=== PATIENT | female | born 1990 | race Caucasian/White ===

== ENCOUNTER → 2019-11-22 | Outpatient (REF) | payer OTHER ==
[2019-11-22 15:04] LABS: INFLUENZA A AMPLIFICATION NEGATIVE (NEGATIVE); INFLUENZA B AMPLIFICATION NEGATIVE (NEGATIVE)
== END ==
LOC: M LAB REF 12:36
PROVIDERS: ATTEND Registered Nurse
DX: R50.9 Fever, unspecified (principal); J02.9 Acute pharyngitis, unspecified

== ENCOUNTER → 2019-12-06 | Outpatient (REF) | payer OTHER ==
[2019-12-07 14:11] LABS: ANTINUCLEAR ANTIBODIES DIRECT Negative (Negative)
== END ==
LOC: M LAB REF 13:40
PROVIDERS: ATTEND Registered Nurse
DX: G43.909 Migraine, unspecified, not intractable, without status migrainosus (principal)

== ENCOUNTER → 2019-12-21 | Outpatient (REF) | payer OTHER ==
[2019-12-21 17:38] LABS: HEMATOCRIT 38.8 % (36.0-47.0); HEMOGLOBIN 12.7 g/dl (12.0-15.5); MEAN CORPUSCULAR HEMOGLOBIN 29.3 pg (27.0-33.0); MEAN CORPUSCULAR HGB CONC 32.7 g/dl (32.0-36.5); MEAN CORPUSCULAR VOLUME 89.6 fl (80.0-96.0); PLATELET COUNT, AUTOMATED 221 10^3/uL (150-450); RED BLOOD COUNT 4.33 10^6/uL (4.00-5.40); WHITE BLOOD COUNT 10.4 10^3/uL (4.0-10.0)
[2019-12-21 17:57] LABS: HCG, SERUM QUANTITATIVE 18386 MIU/ML
[2019-12-22 10:29] LABS: RUBELLA IgG QUALITATIVE IMMUNE (IMMUNE)
[2019-12-22 10:58] LABS: HEPATITIS C VIRUS ABY INDEX < 0.0 INDEX (<0.8); HIV 1&2 SCREEN CENTAUR NEGATIVE (NEGATIVE)
== END ==
LOC: M LAB REF 16:44
PROVIDERS: ATTEND Obstetrics & Gynecology
DX: Z32.01 Encounter for pregnancy test, result positive (principal)

== ENCOUNTER → 2020-05-22 | Outpatient (CLI) | payer OTHER ==
[~2020-05-22] MED LIST: ACET-683 PO; IBUP80TA PO; PRENTAB9 PO
[2020-06-22 08:18] LABS: HEMATOCRIT 35.4 % (36.0-47.0); HEMOGLOBIN 11.5 g/dl (12.0-15.5); MEAN CORPUSCULAR HEMOGLOBIN 29.9 pg (27.0-33.0); MEAN CORPUSCULAR HGB CONC 32.5 g/dl (32.0-36.5); MEAN CORPUSCULAR VOLUME 92.2 fl (80.0-96.0); PLATELET COUNT, AUTOMATED 202 10^3/uL (150-450); RED BLOOD COUNT 3.84 10^6/uL (4.00-5.40); WHITE BLOOD COUNT 13.3 10^3/uL (4.0-10.0)
== END ==
LOC: M LAB 08:31
PROVIDERS: ATTEND Registered Nurse
DX: Z34.82 Encounter for supervision of other normal pregnancy, second trimester (principal); Z3A.00 Weeks of gestation of pregnancy not specified
CPT/HCPCS: 82950; 85027; 86850; 86901; J2790

== ENCOUNTER 2020-08-12 11:02 | Outpatient (CLI) | payer OTHER ==
[~2020-08-12] VITALS: Ht 162.6 cm; Wt 80.4 kg
[2020-08-12] MEDS ORDERED: PRENTAB9 PO (11:28)
[2020-08-12 11:30] VITALS: BP 99/59
[2020-08-12] MEDS ORDERED: LR 1,000 ML IV SCH (11:45)
[2020-08-12] MEDS ORDERED: LACTATED RINGER'S 500 ML IV ONE (12:00)
--- NOTE | 2020-08-12 12:34 | REP ---
INDICATION: QUESTIONABLE MONITORING AT OFFICE. Limited study. COMPARISON: August 06, 2020.. TECHNIQUE: Transabdominal obstetric sonography. FINDINGS: Scanning demonstrates a single intrauterine gestation in the cephalic lie. A posterior fundal grade 3 placenta is seen without evidence of previa. A 2 vessel umbilical cord is noted. heart rate is recorded at 140 beats per minute. Amniotic fluid is subjectively normal. JOSE is normal 14.3 cm. Biophysical profile score is 8 out of a possible 8. The umbilical arterial Doppler SD ratios normal a 2.63. IMPRESSION: Biophysical profile score 8/8. Viable single intrauterine cephalic fetus. Normal JOSE 14.3 cm. <Electronically signed by Chase Kaur > 08/12/20 [id number]
== END 2020-08-12 13:00 | disposition home or self-care (01) ==
LOC: M LDO 11:02
PROVIDERS: ATTEND Obstetrics & Gynecology
DX: O47.1 False labor at or after 37 completed weeks of gestation (principal); Z3A.39 39 weeks gestation of pregnancy
CPT/HCPCS: 59025; 76815; 76819; 76820; G0378; G0463

== ENCOUNTER 2020-08-15 02:15 | Inpatient (IN) | payer OTHER ==
[~2020-08-15] VITALS: Ht 162.6 cm; Wt 79.6 kg
[2020-08-15] VITALS (65 sets, daily range): BP systolic 77–131; BP diastolic 45–85
[~2020-08-15 02:15] MED LIST changes: -ACET-683 PO; -IBUP80TA PO
[2020-08-15] MEDS ORDERED: BICITRA 30ML SOLN UDC PO ONE (05:15)
[2020-08-15] MEDS ORDERED: ACETAMINOPHEN 500 MG TAB PO ONE (05:15)
[2020-08-15] MEDS ORDERED: OXYTOCIN DRIP 30 UNITS in IV 1 EA IV SCH ×2 (08:15→17:42)
[2020-08-15] MEDS: LR 1,000 ML IV SCH ×4 (08:53→16:05)
[2020-08-15 09:07] LABS: APPEARANCE, URINE CLEAR (CLEAR); BACTERIA, URINE AUTO NEGATIVE (NEGATIVE); BASO # 0.1 10^3/uL (0.0-0.2); BASO % 0.3 % (0.0-1.0); BILIRUBIN, URINE AUTO NEGATIVE (NEGATIVE); BLOOD, URINE BLOOD NEGATIVE (NEGATIVE); COLOR, URINE YELLOW (YELLOW); EOS % 0.1 % (0.0-3.0); GLUCOSE, URINE (UA) AUTO 1+ mg/dL (NEGATIVE); HEMATOCRIT 31.7 % (36.0-47.0); KETONE, URINE AUTO 2+ mg/dL (NEGATIVE); LEUKOCYTE ESTERASE, URINE AUTO NEGATIVE (NEGATIVE); LYMPH # 1.1 10^3/uL (1.5-5.0); LYMPH % 5.7 % (24.0-44.0); MEAN CORPUSCULAR HEMOGLOBIN 26.7 pg (27.0-33.0); MEAN CORPUSCULAR HGB CONC 31.5 g/dl (32.0-36.5); MEAN CORPUSCULAR VOLUME 84.5 fl (80.0-96.0); MONO # 0.9 10^3/uL (0.0-0.8); MONO % 4.5 % (0.0-5.0); MUCUS, URINE SMALL (NEGATIVE); NEUTROPHILS # 16.8 10^3/uL (1.5-8.5); NEUTROPHILS % 87.8 % (36.0-66.0); NITRITE, URINE AUTO NEGATIVE (NEGATIVE); PLATELET COUNT, AUTOMATED 180 10^3/uL (150-450); PROTEIN, URINE AUTO NEGATIVE (NEGATIVE); RBC, URINE AUTO 0 /HPF (0-3); RED BLOOD COUNT 3.75 10^6/uL (4.00-5.40); SPECIFIC GRAVITY URINE AUTO 1.013 (1.002-1.035); SQUAMOUS EPITHELIAL CELL UR AU 0 /HPF (0-6); UROBILINOGEN, URINE AUTO 0.2 mg/dL (0.0-2.0); WBC, URINE AUTO 2 /HPF (0-3); WHITE BLOOD COUNT 19.1 10^3/uL (4.0-10.0)
[2020-08-15] MEDS ORDERED: FENTANYL 2MCG/ML ROPIVACAINE 0.2% IN 0.9% NACL 100ML IVBAG As Ordered ONE (09:24)
[2020-08-15 09:30] LABS: ALT/SGPT 8 U/L (12-78); BILIRUBIN,TOTAL 0.2 MG/DL (0.2-1.0); CREATININE FOR GFR 0.48 MG/DL (0.55-1.30); GLOMERULAR FILTRATION RATE > 60.0 (>60); LDH LACTATE DEHYDROGENASE 245 U/L (84-246); URIC ACID 2.6 MG/DL (2.6-6.0)
[2020-08-15] MEDS ORDERED: NALOXONE INJ 0.4MG/1ML VIAL (J2310 PER 1MG) IV PRN (11:00)
[2020-08-15] MEDS ORDERED: LACTATED RINGER'S 1000 ML IV PRN (11:00)
[2020-08-15] MEDS ORDERED: diphenhydrAMINE 50MG/ML VIAL (J1200) IV PRN (11:00)
[2020-08-15] MEDS ORDERED: EPIDURAL/PCA KEYS XX PRN (11:00)
[2020-08-15] MEDS ORDERED: ONDANSETRON 4MG/2ML VIAL IV PRN (11:00)
[2020-08-15] MEDS ORDERED: EPIDURAL COMMENT XX SCH (11:00)
[2020-08-15] MEDS ORDERED: REFRIGERATOR IV KEYS XX PRN (11:00)
[2020-08-15] MEDS ORDERED: FENTANYL/ROPIVACAINE/NACL BAG 100 ML EPIDURAL SCH (11:00)
[2020-08-15] MEDS: ePHEDrine SULFATE 25 MG/5 ML(5MG/ML) SYRINGE IV PRN ×6 (11:18→13:06)
[2020-08-15] MEDS ORDERED: METHYLERGONOVINE MALEATE 0.2 MG TAB PO PRN (17:45)
[2020-08-15] MEDS ORDERED: IBUPROFEN 600MG TAB PO PRN (17:45)
[2020-08-15] MEDS ORDERED: ACETAMINOPHEN 500 MG TAB PO PRN (17:45)
[2020-08-15] MEDS ORDERED: MOM 30ML SUSPENSION UDC PO PRN (17:45)
[2020-08-15] MEDS ORDERED: MEASLES,MUMPS,RUBELLA VACCINE INJ (MMR-II) (90707) SC SCH (17:45)
[2020-08-15] MEDS ORDERED: DOCUSATE SODIUM 100 MG CAP PO PRN (17:45)
[2020-08-15] MEDS ORDERED: DIBUCAINE 1% OINTMENT 30GM TOP PRN (17:45)
[2020-08-15] MEDS ORDERED: ANUSOL HC CREAM 30GM TOP PRN (17:45)
[2020-08-15] MEDS ORDERED: RHOGAM 300 MCG (1500 IU) INJ (J2790) IM SCH (17:45)
[2020-08-15] MEDS ORDERED: ACETAMINOPHEN TAB 650MG DOSE (2X325MG) PO PRN (17:45)
[2020-08-15 17:47] LABS: CORD GAS ABE V -2.8; CORD GAS HCO3 V 22.8 MEQ/L; CORD GAS O2 SAT V 68.8 %; CORD GAS PCO2 V 42.2 mmHg; CORD GAS PH V 7.35 UNITS; CORD GAS PO2 V 27.9 mmHg; CORD GAS SBC V 21.5 MEQ/L; CORD GAS TCO2 V 24.1 MEQ/L
[2020-08-15 17:49] LABS: CORD GAS ABE A -2.6; CORD GAS HCO3 A 24.8 MEQ/L; CORD GAS O2 SAT A 33.1 %; CORD GAS PCO2 A 53.3 mmHg; CORD GAS PH A 7.286 UNITS; CORD GAS SBC A 20.7 MEQ/L; CORD GAS TCO2 A 26.5 MEQ/L
[2020-08-15] MEDS: IBUPROFEN 800 MG TAB PO PRN (20:16)
[2020-08-16 06:00] VITALS: BP 113/70
--- NOTE | 2020-08-16 07:10 | HPE ---
DATE OF ADMISSION: 08/15/2020 Mary is a 30-year-old female, 2, para 0-2-0-2 with an estimated gestational age (EGA) of 39-5/7 weeks station who presented to labor and delivery with complaints of contractions. Upon evaluation, she was found to be in labor. At this point, a decision was made for admission. Her record was reviewed, which was essentially unremarkable. LABORATORY: Blood type is A negative, rubella immune, hepatitis negative, HIV negative, GC/chlamydia negative. One-hour sugar testing was within normal limits. Her GBS is negative. MEDICAL HISTORY: Denies. PAST SURGICAL HISTORY: Denies. SOCIAL HISTORY: Denies any alcohol, drugs, or cigarette smoking. REVIEW OF SYSTEMS: Unremarkable. MEDICATIONS: vitamins. ALLERGIES: No known drug allergies. PHYSICAL EXAMINATION: HEENT: Within normal limits. ABDOMEN: Soft, nontender, nondistended. EXTREMITIES: No clubbing, cyanosis r edema. VAGINAL EXAM: 3-4 cm dilated, 80% effaced, fetus at -3 station in a vertex position. Tracing reviewed. Category 1 tracing. ASSESSMENT: Intrauterine at 39-5/7 weeks gestation, in labor. PLAN: Admit to labor and delivery. Routine labs sent. Pain management discussed. Patient up for an epidural. We will continue to monitor. Anticipate delivery. MTDD
[2020-08-16] MEDS: PRENATAL VITAMINS CHEWABLE TABLET PO SCH (07:28)
[2020-08-16] MEDS: IBUPROFEN 800 MG TAB PO PRN ×2 (07:29→17:55)
[2020-08-16 08:55] LABS: BASO % 0.1 % (0.0-1.0); EOS % 0.1 % (0.0-3.0); HEMATOCRIT 29.8 % (36.0-47.0); HEMOGLOBIN 9.7 g/dl (12.0-15.5); LYMPH # 1.3 10^3/uL (1.5-5.0); LYMPH % 5.9 % (24.0-44.0); MEAN CORPUSCULAR HEMOGLOBIN 27.8 pg (27.0-33.0); MEAN CORPUSCULAR HGB CONC 32.6 g/dl (32.0-36.5); MEAN CORPUSCULAR VOLUME 85.4 fl (80.0-96.0); MONO # 1.3 10^3/uL (0.0-0.8); MONO % 5.8 % (0.0-5.0); NEUTROPHILS # 18.8 10^3/uL (1.5-8.5); NEUTROPHILS % 87.2 % (36.0-66.0); PLATELET COUNT, AUTOMATED 180 10^3/uL (150-450); RED BLOOD COUNT 3.49 10^6/uL (4.00-5.40); WHITE BLOOD COUNT 21.5 10^3/uL (4.0-10.0)
[2020-08-16 09:20] LABS: ALBUMIN 2.3 GM/DL (3.2-5.2); ALT/SGPT 7 U/L (12-78); BILIRUBIN,TOTAL 0.3 MG/DL (0.2-1.0); BLOOD UREA NITROGEN 6 MG/DL (7-18); CALCIUM LEVEL 8.1 MG/DL (8.5-10.1); CARBON DIOXIDE LEVEL 23 MEQ/L (21-32); CHLORIDE LEVEL 109 MEQ/L (98-107); CREATININE FOR GFR 0.63 MG/DL (0.55-1.30); GLOMERULAR FILTRATION RATE > 60.0 (>60); GLUCOSE, FASTING 98 MG/DL (70-100); POTASSIUM SERUM 3.4 MEQ/L (3.5-5.1); SODIUM LEVEL 139 MEQ/L (136-145); TOTAL PROTEIN 5.8 GM/DL (6.4-8.2)
--- NOTE | 2020-08-16 11:08 | DN ---
DATE OF DELIVERY: 08/15/2020 GENDER: Male DESCRIPTION OF DELIVERY: Falguni is a 30-year-old female 2, para 0-1-0-2, who was admitted at 39 5/7 weeks gestation in labor. She progressed to fully dilated after artificial rupture of membranes and Pitocin augmentation. She then delivered a live male infant in right occiput anterior position with a tight nuchal cord that was reduced on the perineum over an intact perineum. 8 and 9. weight 8 pounds 6 ounces. Placenta delivered spontaneously intact. Three vessel cord. Perineum, vagina, and cervix inspected. No laceration noted. Estimated blood loss 300 mL. Both mother and baby in stable condition. MTDD
--- NOTE | 2020-08-16 14:32 | REP ---
INDICATION: RUQ pain.. COMPARISON: None FINDINGS: Multiple ultrasonographic images of the liver show the hepatic parenchymal echo texture to appear unremarkable. There are no focal masses. There is no intrahepatic ductal dilatation. The common bile duct measures approximately 5 mm in its greatest transverse dimension. Multiple ultrasonographic images of the gallbladder show no focal or diffuse gallbladder wall thickening. There are no echogenic foci within the gallbladder lumen, which casts acoustic shadows. There is no pericholecystic edema. Nonshadowing echogenic foci are seen within the gallbladder lumen. One measures 1.6 x 0.9 x 1.2 cm and the other measures 0.5 x 0.5 x 0.4 cm. These appear adherent to the gallbladder wall. Images of the pancreatic region show no gross abnormality. The imaged portion of the right kidney is unremarkable. IMPRESSION: Echogenic foci within the gallbladder, as described above. The exact etiology is uncertain. These might represent sludge balls. Large gallbladder polyps can not be excluded. Three-month follow-up examination is recommended or sooner if clinically relevant.. Accredited by the [employer] in General Ultrasound. <Electronically signed by Gabe Odell > 08/16/20 [id number]
[2020-08-16 18:00] VITALS: BP 108/59
[2020-08-17 05:27] VITALS: BP 107/57
[2020-08-17] MEDS ORDERED: ACET-683 PO (07:57)
[2020-08-17] MEDS ORDERED: IBUP80TA PO (07:57)
[2020-08-17] MEDS ORDERED: INFLUENZA QUADRIVALENT PF VACCINE 0.5ML SYRINGE IM ONE (09:00)
[2020-08-17] MEDS ORDERED: BOOSTRIX/ADACEL VACCINE (DIPHTH/PERTUSS/ACELL/TETANUS) 0.5ML SYR IM ONE (09:00)
[2020-08-17] MEDS: IBUPROFEN 800 MG TAB PO PRN (11:21)
[2020-08-17] MEDS: PRENATAL VITAMINS CHEWABLE TABLET PO SCH (11:21)
== END 2020-08-17 17:05 | disposition home or self-care (01) | DRG 807 ==
LOC: M LDO 02:15 → M LDI 08:22 → M OBS 19:43
PROVIDERS: ADMIT Obstetrics & Gynecology; ATTEND Obstetrics & Gynecology
PROC: 10E0XZZ Delivery of Products of Conception, External Approach (ICD-10-PCS; principal; 2020-08-15)
PROC: 10907ZC Drainage of Amniotic Fluid, Therapeutic from Products of Conception, Via Natural or Artificial Opening (ICD-10-PCS; 2020-08-15)
DX: O69.1XX0 Labor and delivery complicated by cord around neck, with compression, not applicable or unspecified (principal); Z37.0 Single live birth; Z3A.39 39 weeks gestation of pregnancy

== ENCOUNTER → 2020-12-26 | Outpatient (CLI) | payer OTHER ==
[~2020-12-26] MED LIST changes: +ACET-683 PO; +IBUP80TA PO
--- NOTE | 2020-12-27 08:13 | REP ---
INDICATION: HEADACHE. COMPARISON: NONE. TECHNIQUE: Helical scanning is acquired and 2 mm axial images re-formatted. Coronal MPR images are generated and reviewed. FINDINGS: Frontal, ethmoidal, sphenoid, and maxillary sinuses are clear bilaterally. Mastoid aeration is normal and symmetric. There is no evidence of paranasal sinusitis. Bony orbital margins are intact. Paranasal sinus margins are intact. Bony nasal septum is in the midline. Nasal turbinates soft tissues are unremarkable. Ostiomeatal complexes and nasal ethmoid recesses are clear. No intraorbital mass is observed. Deep facial soft tissues are unremarkable. The visualized intracranial soft tissues are IMPRESSION: Negative maxillofacial CT study. <Electronically signed by Chase Kaur > 12/27/20 [id number]
== END ==
LOC: M RAD 17:37
PROVIDERS: ATTEND Registered Nurse
DX: R51.9 Headache, unspecified (principal)

== ENCOUNTER → 2021-03-11 | Outpatient (REF) | payer OTHER ==
[2021-03-11 13:23] LABS: RHEUMATOID FACTOR QUANT < 10.0 IU/ML (<15.0)
[2021-03-11 13:34] LABS: TOTAL 25(OH) VITAMIN D 19.2 NG/ML (30.0-100.0)
[2021-03-12 12:12] LABS: ANTINUCLEAR ANTIBODIES DIRECT Negative (Negative)
== END ==
LOC: M LAB REF 11:59
PROVIDERS: ATTEND Registered Nurse
DX: R51.9 Headache, unspecified (principal)